=== PATIENT | male | born 1990 | race American Indian/Alaskan Native ===

== ENCOUNTER 2018-03-14 05:29 | Emergency (ER) | payer OTHER ==
--- NOTE | 2018-03-14 06:11 | C.PDOC ---
History Of Present Illness 27 year old male patient presents to the ER c/o left-sided upper tooth pain x2 days ago. Patient reports he took ibuprofen with no significant relief. Patient denies trauma, gingival swelling, nausea, vomiting, difficulty breathing and swallowing. Time Seen by Provider: 03/14/18 05:55 Chief Complaint (Nursing): Dental Pain History Per: Patient History/Exam Limitations: no limitations Onset/Duration Of Symptoms: Days (x3) Current Symptoms Are (Timing): Still Present Past Medical History Reviewed: Historical Data, Nursing Documentation, Vital Signs Vital Signs: Last Vital Signs Temp 99.0 F 03/14/18 05:43 Pulse 81 03/14/18 05:43 Resp 20 03/14/18 05:43 BP 135/83 03/14/18 05:43 Pulse Ox 97 03/14/18 05:43 Family History: States: Unknown Family Hx - Social History Hx Alcohol Use: No Hx Substance Use: Yes - Immunization History Hx Tetanus Toxoid Vaccination: No Hx Influenza Vaccination: No Hx Pneumococcal Vaccination: No Review Of Systems Constitutional: Negative for: Other (trauma) ENT: Positive for: Other (left-sided upper tooth pain; no difficulty swallowing) Respiratory: Negative for: Other (difficulty breathing) Gastrointestinal: Negative for: Nausea, Vomiting Physical Exam - Physical Exam Appears: Well, Non-toxic, No Acute Distress (sitting on the stretcher with no evidence of pain, swallowing without difficulty.) Skin: Normal Color, Warm, Dry Head: Atraumatic, Normacephalic Eye(s): bilateral: Normal Inspection, EOMI Nose: Normal Oral Mucosa: Moist Teeth: No Normal Dentition (poor), Tender To Palpation (left maxilla incisor wit h partial avulsion. ) Gingiva: No Swelling, No Tender Throat: Normal, No Erythema, No Exudate Neck: Normal ROM, Supple Chest: Symmetrical Cardiovascular: Rhythm Regular Respiratory: Normal Breath Sounds, No Accessory Muscle Use, Other (speaking in full sentences) Extremity: Normal ROM Neurological/Psych: Oriented x3, Normal Speech ED Course And Treatment O2 Sat by Pulse Oximetry: 97 (RA) Pulse Ox Interpretation: Normal Progress Note: plans: -- amoxicillin. -- lidocaine. -- ultram. On re- evaluation, patient is resting comfortably. Tolerating PO. Afebrile. Patient is given rx to take home and f/u with dentist in 1-2 days. Disposition - Disposition [facility] Disposition: HOME/ ROUTINE Disposition Time: 06:11 Condition: STABLE Additional Instructions: Follow up with the dentist in 1-2 days. Return to ER if symptoms persist or worsen. Prescriptions: Amoxicillin 875 mg PO BID #14 tablet traMADol [Ultram] 50 mg PO Q8 #20 tab Instructions: Dental Pain (DC) Forms: [employer] (Vincentian) - Clinical Impression Clinical Impression: Pain, dental - PA / [employer] / Resident Statement MD/DO has reviewed & agrees with the documentation as recorded. - Scribe Statement The provider has reviewed the documentation as recorded by the Mildred Berg Do All medical record entries made by the Scribe were at my direction and personally dictated by me. I have reviewed the chart and agree that the record accurately reflects my personal performance of the history, physical exam, medical decision making, and the department course for this patient. I have also personally directed, reviewed, and agree with the discharge instructions and disposition.
[2018-03-14 06:40] VITALS: BP 110/67; PULSE 71; RESP 16; TEMP 98.2
[2018-03-17 16:09] VITALS: O2SAT 97
== END 2018-03-14 06:40 | disposition home or self-care (01) ==
LOC: C.ER 05:29
DX: K08.89 Other specified disorders of teeth and supporting structures (principal)

== ENCOUNTER 2018-05-03 02:04 | Emergency (ER) | payer MEDICAID, OTHER ==
[2018-05-03 02:23] VITALS: O2SAT 97
[2018-05-03] MEDS ORDERED: Sodium Chloride 0.9% 1,000 ML IV STA (02:55)
[2018-05-03] MEDS ORDERED: Dexamethasone 4 mg/1 ml IVP STA (02:56)
[2018-05-03] MEDS ORDERED: cefTRIAXone 1 gm 1 GM/100 ML BAG IVPB ONE (03:19)
[2018-05-03] MEDS ORDERED: Sodium Chloride 0.9% 1,000 ML ONE (03:20)
--- NOTE | 2018-05-03 04:35 | C.PDOC ---
History Of Present Illness 27 year old male presents to the ED c/o sore throat, difficulty swallowing for the past 2 days. Patient states he is having difficulty trying to spit up secretion. Patient denies fever, chills, cough, nasal congestion, nausea, vomit, SOB, wheezing, rash. Time Seen by Provider: 05/03/18 02:28 Chief Complaint (Nursing): ENT Problem History Per: Patient History/Exam Limitations: None Onset/Duration Of Symptoms: Days (2) Current Symptoms Are (Timing): Still Present Quality (Mouth/Throat): Tenderness Anticoagulant/Antiplatlet Use?: No Recent Aspirin Use: No Past Medical History Reviewed: Historical Data, Nursing Documentation, Vital Signs Vital Signs: Last Vital Signs Temp 98.5 F 05/03/18 02:17 Pulse 92 H 05/03/18 02:17 Resp 20 05/03/18 02:17 BP 122/77 05/03/18 02:17 Pulse Ox 97 05/03/18 02:17 - Medical History PMH: No Chronic Diseases Surgical History: No Surg Hx Family History: States: Unknown Family Hx - Social History Hx Alcohol Use: No Hx Substance Use: Yes - Immunization History Hx Tetanus Toxoid Vaccination: No Hx Influenza Vaccination: No Hx Pneumococcal Vaccination: No Review Of Systems Constitutional: Negative for: Fever, Chills ENT: Positive for: Throat Pain. Negative for: Nose Congestion, Throat Swelling Respiratory: Negative for: Cough, Shortness of Breath, Wheezing Gastrointestinal: Negative for: Nausea, Vomiting Skin: Negative for: Rash Neurological: Negative for: Headache Physical Exam - Physical Exam Appears: Non-toxic, No Acute Distress Skin: Normal Color, Warm, Dry Head: Atraumatic, Normacephalic Eye(s): bilateral: Normal Inspection Ear(s): Bilateral: Normal Oral Mucosa: Moist Tongue: No Swelling Lips: No Swelling Throat: Erythema (pharyngeal and tonsillar b/l), Exudate (both tonsills), No Drooling, Other (swollen tonsils, airway patent, uvula midline) Neck: Normal ROM, Supple Lymphatic: Adenopathy (submandibular) Chest: Symmetrical Cardiovascular: Rhythm Regular Respiratory: Normal Breath Sounds, No Rales, No Rhonchi, No Wheezing Gastrointestinal/Abdominal: Tenderness Back: No Vertebral Tenderness, No Paraspinal Tenderness Extremity: Normal ROM Neurological/Psych: Oriented x3, Normal Speech, Normal Cognition Gait: Steady ED Course And Treatment O2 Sat by Pulse Oximetry: 97 (ON RA) Pulse Ox Interpretation: Normal Progress Note: Plan: - Decadron 10 mg IVP. - Rocephin IVPB. - IV fluids. - Toradol 30 mg IVP. On re-evaluation patient feels better, tolerates po and is stable to be d/c home with PMD follow up. Reassessment Condition: Improved Disposition - Disposition Disposition: HOME/ ROUTINE Disposition Time: 05:24 Condition: STABLE Additional Instructions: Follow up with PMD within 1-2 days. Return to ED if feel worse. 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 - Scribe Statement The provider has reviewed the documentation as recorded by the Scribe Johnathan Iglesias All medical record entries made by the Bronwynibshama were at my direction and personally dictated by me. I have reviewed the chart and agree that the record accurately reflects my personal performance of the history, physical exam, medical decision making, and the department course for this patient. I have also personally directed, reviewed, and agree with the discharge instructions and disposition.
[2018-05-03 05:44] VITALS: BP 116/62; PULSE 74; RESP 16; TEMP 98.6
== END 2018-05-03 05:43 | disposition home or self-care (01) ==
LOC: C.ER 02:04
DX: J03.90 Acute tonsillitis, unspecified (principal)
CPT/HCPCS: 96365; 96375; 99283; J0696; J1100; J1885; J7030